=== PATIENT | female | born 1995 | race African-American/Black ===

== ENCOUNTER 2022-03-13 20:42 | Emergency (ER) | payer OTHER ==
[2022-03-13 20:56] VITALS: BP 142/86
--- NOTE | 2022-03-13 21:38 | ED Physician Documentation ---
PD HPI UPPER EXT INJURY - Stated complaint Stated Complaint: FINGER LAC - Chief complaint Chief Complaint: Laceration - History obtained from History obtained from: Patient - History of Present Illness Location: Left, Finger Type of injury: Laceration Where injury occurred: Home Timing - onset: Enter time (20:00) Timing - details: Abrupt onset Associated symptoms: Other (decreased sensation at fingertip) Recently seen: Not recently seen - Additonal information Additional information: patient is right hand dominant. At approximately 8 PM tonight she was cutting bread with a serrated knife, accidentally cut tip of left fourth finger. She is UTD on tetanus. Review of Systems Skin: reports: Laceration (s) Neurologic: reports: Numbness (decreased senation left finger tip). denies: Focal weakness PD PAST MEDICAL HISTORY - Past Medical History Past Medical History: No - Past Surgical History Past Surgical History: No - Allergies Allergies/Adverse Reactions: Allergies Allergy/AdvReac Type Severity Reaction Status Date / Time No Known Drug Allergies Allergy Verified 03/13/22 20:55 - Social History Does the pt smoke?: No Smoking Status: Never smoker Does the pt drink ETOH?: Yes Does the pt have substance abuse?: No - Immunizations Immunizations are current?: Yes - POLST Patient has POLST: No PD ED PE NORMAL - Vitals Vital signs reviewed: Yes - General General: Alert and oriented X 3, No acute distress, Well developed/nourished PD ED PE EXPANDED - Extremities Extremities: Other (one cm laceration to left fingertip without involvement of nail although much of the laceration is immediately distal to/adjacent to nail. she has decreased sensation of the fingertip but brisk capillary refill) PD MEDICAL DECISION MAKING - ED course Complexity details: considered differential, d/w patient ED course: small laceration to left fourth fingertip, edges reapproximated with Dermabond and reinforced with steri-strips Departure - Departure Disposition: 01 Home, Self Care Clinical Impression: Laceration Condition: Stable Instructions: ED Laceration Ext Skin Glue Discharge Date/Time: 03/13/22 22:30
== END 2022-03-13 22:30 | disposition home or self-care (01) ==
LOC: ED 20:42
DX: S61.215A Laceration without foreign body of left ring finger without damage to nail, initial encounter (principal); W26.0XXA Contact with knife, initial encounter; Y93.G1 Activity, food preparation and clean up
CPT/HCPCS: 99281; 99282